=== PATIENT | female | born 2000 | race Caucasian/White ===

== ENCOUNTER 2019-03-08 20:10 | Emergency (ER) | payer OTHER ==
[~2019-03-08] VITALS: Ht 160 cm; Wt 104.3 kg
--- OUTSIDE RECORDS SUMMARY | 2019-03-08 20:14 | XMS REPORT | Continuity of Care Document ---
Author Author [facility] Address Unknown Phone Unavailable Care Team Providers Care Shot Hole Driller Name Role Phone MD Jessica, Dinesh HOUSE Unavailable Insurance Providers Payer name Policy type / Coverage type Policy ID Covered alliance party ID Policy Lester [employer] - OPEN ACCESS PLUS Encounters Encounter Performer Location Date Office Visit Dinesh Lopez MD [facility] May 20, 2014 Problems Problem Effective Dates Problem Status ADHD Jan 23, 2014 Active DEPRESSION Jan 23, 2014 Active CONTRACEPTIVE MANAGEMENT Jan 23, 2014 Active OTALGIA, UNSPECIFIED Apr 22, 2014 Inactive Procedures Date Description Comments Jan 23, 2014 smoking status never smoker Apr 22, 2014 smoking status Never smoker May 20, 2014 smoking status Never smoker Medications Medication Instructions Start Date Status PROZAC 10 MG CAPS 1 p.o. qd Jan 23, 2014 Active TRINESSA (28) TABS 1 p.o. qd Jan 23, 2014 Active DAYTRANA 30 MG/9HR PTCH apply patch once daily Jan 23, 2014 Inactive VYVANSE 40 MG CAPS Take one capsule by mouth daily Apr 22, 2014 Active ZYPREXA 5 MG TABS 1 before bed May 20, 2014 Active Vital Signs Date Description Test Result Jan 23, 2014 height E&M HEIGHT 65 in Jan 23, 2014 weight E&M WEIGHT 181 lb Jan 23, 2014 temperature E&M TEMPERATURE 98.7 deg f Jan 23, 2014 pulse rate E&M PULSE RATE 100 /min Jan 23, 2014 blood pressure, systolic BP SYSTOLIC 118 mm Hg Jan 23, 2014 blood pressure, diastolic BP DIASTOLIC 70 mm Hg Apr 22, 2014 weight E&M WEIGHT 187 lb Apr 22, 2014 temperature E&M TEMPERATURE 98.8 deg f Apr 22, 2014 pulse rate E&M PULSE RATE 80 /min Apr 22, 2014 blood pressure, systolic BP SYSTOLIC 116 mm Hg Apr 22, 2014 blood pressure, diastolic BP DIASTOLIC 66 mm Hg May 20, 2014 height E&M HEIGHT 64.5 in May 20, 2014 weight E&M WEIGHT 186 lb May 20, 2014 temperature E&M TEMPERATURE 98.6 deg f May 20, 2014 respiratory rate E&M RESP RATE 16 /min May 20, 2014 pulse rate E&M PULSE RATE 94 /min May 20, 2014 blood pressure, systolic BP SYSTOLIC 120 mm Hg May 20, 2014 blood pressure, diastolic BP DIASTOLIC 84 mm Hg
--- OUTSIDE RECORDS SUMMARY | 2019-03-08 20:14 | XMS REPORT | Continuity of Care Document ---
Author Author [facility] Interface Address Unknown Phone Unavailable Problems Problem Status Onset Date Classification Date Reported Comments Source R10.2 - PELVIC AND PERINEAL PAIN Active 10/28/2018 [facility] [place] Female pelvic inflammatory disease, unspecified 11/17/2017 02/19/2018 [facility] N73.9 - FEMALE PELVIC INFLAMMATORY DIS Active 11/01/2017 [facility] Atypical chest pain<sup>1</sup> Active 02/03/2015 Problem 09/16/2017 Data migrated from [employer] on 04/21/15. [facility] Discharge Diagnosis: Palpitations 01/29/2015 02/01/2015 [facility] Discharge Diagnosis: Chest pain, atypical 01/29/2015 02/01/2015 [facility] HEART PALPATATIONS Active 01/29/2015 [facility] OTALGIA, UNSPECIFIED Inactive 04/22/2014 Condition 12/31/2014 [facility] ADHD Active 01/23/2014 Condition 12/31/2014 [facility] DEPRESSION Active 01/23/2014 Condition 12/31/2014 [facility] CONTRACEPTIVE MANAGEMENT Active 01/23/2014 Condition 12/31/2014 [facility] Contraception care management<sup>2</sup> Active 01/23/2014 Problem 09/16/2017 Data migrated from [employer] on 03/16/15[facility]<sup[facility]</sup[facility] Active 01/23/2014 Problem 09/16/2017 Data migrated from [employer] on 03/16/15. [facility] Contraception care management<sup>1</sup> Active 01/23/2014 Problem 02/22/2019 Data migrated from [employer] on 03/16/15. [facility] Depressive disorder<sup>2</sup> Active 01/23/2014 Problem 02/22/2019 Data migrated from [employer] on 03/16/15. [facility] ADHD , combined type(<span ID="[id number]">Confirmed</span>) Active Problem 02/22/2019 [facility] Depression Resolved Problem 02/22/2019 [facility] Obesity Active Problem 02/22/2019 [facility] ADHD (<span ID="[id number]">Confirmed</span>) Resolved Problem 02/01/2015 [facility] Major depressive disorder, recurrent episode Active Problem 02/22/2019 [facility] LBP Active [facility] Medications Medication Details Route Status Patient Instructions Ordering Provider Order Date Source Ondansetron 8 MG Oral Tablet [Zofran] 8 mg=1 tab, PO, TID, # 10 tab, 0 Refill(s), Pharmacy: [facility] [id number] Active 07/16/2018 [facility] aripiprazole 5 MG Oral Tablet [Abilify] 5 mg=1 tab, PO, Daily, # 90 tab, 1 Refill(s) Active 07/12/2018 [facility] sertraline 50 mg oral tablet 50 mg=1 tab, PO, Daily, # 30 tab, 1 Refill(s), Pharmacy: [facility] [id number] No Longer Active 06/10/2018 [facility] aripiprazole 5 MG Oral Tablet [Abilify] 5 mg=1 tab, PO, Daily, # 30 tab, 1 Refill(s) No Longer Active 06/10/2018 [facility] albuterol 90 mcg/inh inhalation aerosol 2 puff, INHALATION, Q4H, PRN for wheezing, # 1 ea, 0 Refill(s), Pharmacy: [facility] [id number], *may substitute any generic albuterol inhaler Active 04/23/2018 [facility] {21 (Methylprednisolone 4 MG Oral Tablet [Medrol]) } Pack [Medrol Dosepak] See Instructions, PO, Take by mouth as directed on label., # 1 Pack, 0 Refill(s), Pharmacy: [facility] [id number] Active 04/23/2018 [facility] pantoprazole 40 mg oral enteric coated tablet 40 mg=1 tab, PO, Daily, # 30 tab, 1 Refill(s), Pharmacy: [facility] [id number] Active 04/03/2018 [facility] promethazine 12.5 mg oral tablet 12.5 mg=1 tab, PO, Q8H, PRN Nausea, May cause drowsiness, # 30 tab, 0 Refill(s), Pharmacy: [facility] [id number] No Longer Active 01/17/2018 [facility] Brompheniramine Maleate 0.4 MG/ML / Dextromethorphan Hydrobromide 2 MG/ML / Pseudoephedrine Hydrochloride 6 MG/ML Oral Solution [Bromfed DM] See Instructions, PRN cough, 10 ml PO TID prn cough, may cause drowsiness., # 150 mL, 0 Refill(s), Pharmacy: [facility] [id number] No Longer Active 12/31/2017 [facility] Clarithromycin 500 MG Oral Tablet [Biaxin] 500 mg=1 tab, PO, Q12H, X 10 day, # 20 tab, 0 Refill(s), Pharmacy: [facility] [id number] No Longer Active 12/31/2017 [facility] Promethazine Hydrochloride 25 MG Oral Tablet 25 mg=1 tab, PO, Q6H, PRN Nausea/Vomiting, # 12 tab, 0 Refill(s), Pharmacy: [facility] [id number] No Longer Active 12/21/2017 [facility] Azithromycin 250 MG Oral Tablet [Zithromax] 1,000 mg=4 tab, PO, ONCE, # 4 tab, 0 Refill(s), Pharmacy: [facility]/pharmacy #[id number] Active 10/02/2017 [facility] Azithromycin 500 MG Oral Tablet [Zithromax] 2,000 mg=4 tab, PO, ONCE, # 4 tab, 0 Refill(s), Pharmacy: [facility]/pharmacy #[id number] Active 10/02/2017 [facility] Doxepin Hydrochloride 25 MG Oral Capsule 25 mg=1 cap, PO, Bedtime, # 15 cap, 0 Refill(s), Pharmacy: [facility]/pharmacy #[id number] Active 09/13/2017 [facility] cimetidine 400 mg oral tablet 400 mg=1 tab, PO, BID, X 15 day, # 30 tab, 0 Refill(s), Pharmacy: [facility]/pharmacy #[id number] Active 09/13/2017 [facility] predniSONE 10 mg oral tablet 10 mg=1 tab, PO, Daily, # 7 tab, 0 Refill(s) Inactive 09/13/2017 [facility] Hydroxyzine Hydrochloride 25 MG Oral Tablet 25 mg=1 tab, PO, TID, X 14 day, # 42 tab, 0 Refill(s), [id number] Active 09/11/2017 [facility] Saline Flush 0.9% 10 mL, Route: IVP, Drug Form: INJ, Dosing Weight 86.534, kg, PRN, PRN Line Flush, Start date: 01/29/15 22:21:00, Duration: 30 day, Stop date: 02/28/15 22:20:00Notes: preservative free. No Longer Active 01/30/2015 [facility] INTUNIV 2 MG [id number] one tablet each morning Active 12/31/2014 [facility] ZYPREXA 5 MG TABS 1 before bed No Longer Active 05/20/2014 [facility] VYVANSE 40 MG CAPS Take one capsule by mouth daily Active 04/22/2014 [facility] VYVANSE 60 MG CAPS Take one capsule by mouth in the morning Active 04/22/2014 [facility] DAYTRANA 30 MG/9HR PTCH apply patch once daily No Longer Active 01/23/2014 [facility] PROZAC 10 MG CAPS 1 p.o. qd Active 01/23/2014 [facility] TRINESSA (28) TABS 1 p.o. qd Active 01/23/2014 [facility] TRINESSA (28) TABS 1 p.o. qd Active 01/23/2014 [facility] Allergies, Adverse Reactions, Alerts Substance Category Reaction Severity Reaction type Status Date Reported Comments Source No Known Medication Allergies Assertion Drug allergy [facility] Immunizations Immunization Date Given Site Status Last Updated Comments Source Results Order Name Results Value Reference Range Date Interpretation Comments Source Abdomen complete US Abdomen complete US Patient Name: WOODROW DARLING : 2000; Age: 18 years Female MR: [id number] Study: Abdomen complete US 04/26/2018 8:34 AM CDT CLINICAL INDICATION: - c/o midepigastric pain after eating x almost 3 weeks COMPARISON: None TECHNIQUE: Grayscale and limited color sonographic evaluation of the abdomen was performed using standard technique. FINDINGS: Liver: The liver demonstrates increased echogenicity and is normal in size, measuring 18.9 cm. No focal liver lesion identified. The main portal vein demonstrates normal hepatopedal flow. Gallbladder: Normal appearance of the gallbladder without evidence of stones, wall thickening, or pericholecystic fluid. Biliary: No intra or extrahepatic biliary ductal dilatation. The common bile duct measures 0.32 cm. Pancreas: The visualized portions of the pancreatic body are unremarkable. Spleen: The spleen is normal in echogenicity and in size, measuring 10.9 cm in length. Kidney: The right kidney measures 12.8 cm in length. The left kidney measures 12 cm in length. Normal renal echogenicity and contour without evidence of hydronephrosis. Aorta and IVC: The visualized portions are unremarkable. No evidence of free fluid. IMPRESSION: Hepatic steatosis. SL: [id number] 04/26/2018 - - Read by: Cristhian Levy MD Dictated Date/time: 04/26/18 09:54 Electronically Signed by: Cristhian Levy MD 04/26/18 09:56 FINAL REPORT [facility] Pelvis Transvaginal US Pelvis Transvaginal US TRANSVAGINAL ULTRASOUND PELVIS TECHNIQUE: Grayscale and color transvaginal imaging of the pelvis was performed with standard technique. HISTORY: Pelvic inflammatory disease; pelvic pain COMPARISON: None available. FINDINGS: The uterus measures 7.3 x 3.4 x 4.6 cm in size. The uterine parenchyma appears normal without evidence of fibroids. The endometrial stripe is normal and measures 6 mm in thickness. Both ovaries are normal in size and appearance. The right ovary measures 2.8 x 3.4 x 2.0 cm and the left ovary measures 2.8 x 1.7 x 2.2 cm. Doppler evaluation reveals normal arterial and venous waveforms in both ovaries. There are no adnexal masses. There is no free fluid in the pelvic cul-de-sac. IMPRESSION: Normal study SL: [id number]-PC 11/13/2017 - - Read by: David Olivas MD Dictated Date/time: 11/13/17 18:18 Electronically Signed by: David Olivas MD 11/13/17 18:20 FINAL REPORT [facility] CHEM PANEL eGFR See Comment 01/30/2015 1Result Comment: No height is recorded for this patient; estimated GFR cannot be calculated. [facility] CHEM PANEL Calcium Lvl 9.3 mg/dL 8.5 - 10.5 01/30/2015 [facility] CHEM PANEL Creatinine Lvl 0.6 mg/dL 0.5 - 1.4 01/30/2015 [facility] CHEM PANEL Sodium Lvl 139 meq/L 135 - 145 01/30/2015 [facility] CHEM PANEL Glucose Lvl 90 mg/dL 70 - 99 01/30/2015 2Interpretive Data: Adult reference range values reflect the clinical guidelines of the [place] [employer]. [facility] CHEM PANEL Chloride Lvl 106 meq/L 95 - 109 01/30/2015 [facility] CHEM PANEL Potassium Lvl 3.7 meq/L 3.5 - 5.1 01/30/2015 [facility] CHEM PANEL BUN 10 mg/dL 7 - 22 01/30/2015 [facility] CHEM PANEL CO2 26 meq/L 24 - 32 01/30/2015 [facility] CHEM PANEL AGAP 10.7 meq/L 10.0 - 20.0 01/30/2015 [facility] HEMATOLOGY D-Dimer 0.22 ug/mL FEU 01/30/2015 3Interpretive Data: In DIC, quantitative D-Dimer is generally greater than 0.66 ug/mL FEU. Values of quantitative D-Dimer less than 0.40 ug/mL FEU have been reported to be associated with a low probability of deep vein thrombosis/pulmonary embolism. This test alone should not be used to rule out DVT/PE. [facility] MPV 9.3 fL 7.4 - 10.4 01/30/2015 [facility] Platelet 213 K/CMM 133 - 450 01/30/2015 [facility] RDW 12.4 % 11.5 - 14.5 01/30/2015 [facility] Hct 36.7 % 36.0 - 48.0 01/30/2015 [facility] WBC 8.4 K/CMM 3.7 - 10.4 01/30/2015 [facility] MCH 32.4 pg 27.0 - 31.0 01/30/2015 [facility] MCV 93.8 fL 80.0 - 98.0 01/30/2015 [facility] MCHC 34.5 g/dL 32.0 - 36.0 01/30/2015 [facility] HEMATOLOGY Hgb 12.7 g/dL 12.0 - 16.0 01/30/2015 [facility] HEMATOLOGY RBC 3.91 M/CMM 4.20 - 5.40 01/30/2015 [facility] HEMATOLOGY Eosinophils # 0.1 K/CMM 0.0 - 0.5 01/30/2015 [facility] HEMATOLOGY Monocytes # 0.8 K/CMM 0.0 - 0.8 01/30/2015 [facility] HEMATOLOGY Segs 58.3 % 34.0 - 64.0 01/30/2015 [facility] HEMATOLOGY Lymphocytes 30.5 % 20.0 - 40.0 01/30/2015 [facility] HEMATOLOGY Monocytes 9.5 % 2.0 - 12.0 01/30/2015 [facility] HEMATOLOGY Basophils 0.3 % 0.0 - 1.0 01/30/2015 [facility] HEMATOLOGY Segs-Bands # 4.9 K/CMM 1.5 - 8.1 01/30/2015 [facility] Eosinophils 1.4 % 0.0 - 4.0 01/30/2015 [facility] Lymphocytes # 2.6 K/CMM 1.0 - 5.5 01/30/2015 [facility] Chest 1view DX Chest 1view DX Chest, single view: CLINICAL HISTORY: Chest pain COMPARISON: No prior similar examinations are currently available for comparison. The lungs are clear of consolidation, pleural effusion, and pneumothorax. The heart size is normal. No acute osseous abnormality or suspicious focal osseous lesion. IMPRESSION: Normal single view chest. SL:17 01/29/2015 - - Read by: Baldemar Lobo MD Dictated Date/time: 01/29/15 22:53 Electronically Signed by: Baldemar Lobo MD 01/29/15 22:53 FINAL REPORT [facility] Vital Signs Vital Sign Value Date Comments Source Weight 110.364 02/19/2019 [facility] BMI Calculated 43.1 02/19/2019 [facility] Height 160.02 cm 02/19/2019 [facility] Heart Rate 83 02/19/2019 [facility] Temperature Oral (F) 98.6 F 02/19/2019 [facility] Systolic (mm Hg) 136 02/19/2019 [facility] Diastolic (mm Hg) 81 02/19/2019 [facility] BMI Calculated 44.38 07/16/2018 [facility] Height 160.02 cm 07/16/2018 [facility] Heart Rate 99 07/16/2018 [facility] Temperature Oral (F) 98.4 F 07/16/2018 [facility] Weight 113.636 07/16/2018 [facility] Systolic (mm Hg) 123 07/16/2018 [facility] Diastolic (mm Hg) 83 07/16/2018 [facility] Systolic (mm Hg) 122 07/12/2018 [facility] Diastolic (mm Hg) 80 07/12/2018 [facility] Temperature Oral (F) 98.3 F 07/12/2018 [facility] Height 160.02 cm 07/12/2018 [facility] BMI Calculated 44.59 07/12/2018 [facility] Weight 114.182 07/12/2018 [facility] Heart Rate 84 07/12/2018 [facility] Systolic (mm Hg) 130 06/10/2018 [facility] Diastolic (mm Hg) 84 06/10/2018 [facility] Heart Rate 90 06/10/2018 [facility] Temperature Oral (F) 98.3 F 06/10/2018 [facility] Height 160.02 cm 06/10/2018 [facility] Weight 114.727 06/10/2018 [facility] BMI Calculated 44.8 06/10/2018 [facility] BMI Calculated 45.09 04/23/2018 [facility] Weight 115.455 04/23/2018 [facility] Temperature Oral (F) 98.2 F 04/23/2018 [facility] Heart Rate 99 04/23/2018 [facility] Respitory Rate 16 04/23/2018 [facility] Systolic (mm Hg) 106 04/23/2018 [facility] Diastolic (mm Hg) 73 04/23/2018 [facility] Height 160.02 cm 04/23/2018 [facility] BMI Calculated 44.7 04/03/2018 [facility] Weight 114.455 04/03/2018 [facility] Heart Rate 98 04/03/2018 [facility] Temperature Oral (F) 98.3 F 04/03/2018 [facility] Height 160.02 cm 04/03/2018 [facility] Systolic (mm Hg) 108 04/03/2018 [facility] Diastolic (mm Hg) 74 04/03/2018 [facility] Weight 114 01/17/2018 [facility] Heart Rate 98 01/17/2018 [facility] Temperature Oral (F) 97.8 F 01/17/2018 [facility] Height 160.02 cm 01/17/2018 [facility] BMI Calculated 44.52 01/17/2018 [facility] Systolic (mm Hg) 98 01/17/2018 [facility] Diastolic (mm Hg) 70 01/17/2018 [facility] Heart Rate 116 12/31/2017 [facility] Temperature Oral (F) 98.7 F 12/31/2017 [facility] Weight 114.545 12/31/2017 [facility] Height 160.02 cm 12/31/2017 [facility] BMI Calculated 44.73 12/31/2017 [facility] Systolic (mm Hg) 109 12/31/2017 [facility] Diastolic (mm Hg) 75 12/31/2017 [facility] Height 160.02 cm 12/21/2017 [facility] BMI Calculated 44.95 12/21/2017 [facility] Weight 115.091 12/21/2017 [facility] Temperature Oral (F) 97.6 F 12/21/2017 [facility] Heart Rate 93 12/21/2017 [facility] Systolic (mm Hg) 110 12/21/2017 [facility] Diastolic (mm Hg) 74 12/21/2017 [facility] BMI Calculated 45.27 10/01/2017 [facility] Weight 115.909 10/01/2017 [facility] Height 160.02 cm 10/01/2017 [facility] Systolic (mm Hg) 111 10/01/2017 [facility] Diastolic (mm Hg) 77 10/01/2017 [facility] Temperature Oral (F) 97.9 F 10/01/2017 [facility] Heart Rate 93 10/01/2017 [facility] Respitory Rate 16 10/01/2017 [facility] BMI Calculated 44.73 09/13/2017 [facility] Weight 114.545 09/13/2017 [facility] Height 160.02 cm 09/13/2017 [facility] Heart Rate 108 09/13/2017 [facility] Respitory Rate 16 09/13/2017 [facility] Systolic (mm Hg) 136 09/13/2017 [facility] Diastolic (mm Hg) 86 09/13/2017 [facility] Temperature Oral (F) 98.1 F 09/13/2017 [facility] Heart Rate 106 09/10/2017 [facility] Temperature Oral (F) 97.7 F 09/10/2017 [facility] Weight 114.909 09/10/2017 [facility] BMI Calculated 44.88 09/10/2017 [facility] Systolic (mm Hg) 127 09/10/2017 [facility] Diastolic (mm Hg) 84 09/10/2017 [facility] Height 160.02 cm 09/10/2017 [facility] BMI Calculated 44.91 08/29/2017 [facility] Weight 115 08/29/2017 [facility] Height 160.02 cm 08/29/2017 [facility] Temperature Oral (F) 98.4 F 08/29/2017 [facility] Respitory Rate 16 08/29/2017 [facility] Systolic (mm Hg) 121 08/29/2017 [facility] Diastolic (mm Hg) 81 08/29/2017 [facility] Heart Rate 109 08/29/2017 [facility] Respitory Rate 14 01/30/2015 [facility] Heart Rate 93 01/30/2015 [facility] Systolic (mm Hg) 143 01/30/2015 [facility] Diastolic (mm Hg) 81 01/30/2015 [facility] Temperature Oral (F) 98.1 F 01/30/2015 [facility] Systolic (mm Hg) 129 01/30/2015 [facility] Diastolic (mm Hg) 79 01/30/2015 [facility] Respitory Rate 14 01/30/2015 [facility] Heart Rate 86 01/30/2015 [facility] Temperature Oral (F) 98.2 F 01/30/2015 [facility] Weight 86.534 01/30/2015 [facility] Respitory Rate 20 01/30/2015 [facility] Heart Rate 107 01/30/2015 [facility] Systolic (mm Hg) 147 01/30/2015 [facility] Diastolic (mm Hg) 89 01/30/2015 [facility] Temperature Oral (F) 98.0 F 01/30/2015 [facility] Height 64 12/31/2014 [facility] Weight 187 12/31/2014 [facility] Temperature Oral (F) 98.2 F 12/31/2014 [facility] Respitory Rate 16 12/31/2014 [facility] Heart Rate 80 12/31/2014 [facility] Systolic (mm Hg) 112 12/31/2014 [facility] Diastolic (mm Hg) 82 12/31/2014 [facility] Height 63.5 11/02/2014 [facility] Weight 188 11/02/2014 [facility] Temperature Oral (F) 98.4 F 11/02/2014 [facility] Respitory Rate 16 11/02/2014 [facility] Heart Rate 80 11/02/2014 [facility] Systolic (mm Hg) 122 11/02/2014 [facility] Diastolic (mm Hg) 80 11/02/2014 [facility] Height 64.5 05/20/2014 [facility] Weight 186 05/20/2014 [facility] Temperature Oral (F) 98.6 F 05/20/2014 [facility] Respitory Rate 16 05/20/2014 [facility] Heart Rate 94 05/20/2014 [facility] Systolic (mm Hg) 120 05/20/2014 [facility] Diastolic (mm Hg) 84 05/20/2014 [facility] Weight 187 04/22/2014 [facility] Temperature Oral (F) 98.8 F 04/22/2014 [facility] Heart Rate 80 04/22/2014 [facility] Systolic (mm Hg) 116 04/22/2014 [facility] Diastolic (mm Hg) 66 04/22/2014 [facility] Height 65 01/23/2014 [facility] Weight 181 01/23/2014 [facility] Temperature Oral (F) 98.7 F 01/23/2014 [facility] Heart Rate 100 01/23/2014 [facility] Systolic (mm Hg) 118 01/23/2014 [facility] Diastolic (mm Hg) 70 01/23/2014 [facility] Encounters Location Location Details Encounter Type Encounter Number Reason For Visit Attending Provider ADM Date DC Date Status Source [facility] [place] Office Visit [id number] Dinesh Reno MD 01/23/2014 01/23/2014 [facility] [place] [facility] [place] [id number] Dinesh Reno MD 04/22/2014 04/22/2014 [facility] [place] [facility] Visit [id number] Dinesh Reno MD 05/20/2014 05/20/2014 [facility] [place] [facility] Visit [id number] Dinesh Reno MD 11/02/2014 11/02/2014 [facility] [place] [facility] Visit [id number] Dinesh Reno MD 12/31/2014 12/31/2014 [facility] [id number] Jamison Lorenzana 01/30/2015 01/30/2015 [facility] Outpatient [id number] DINESH RENO 07/26/2015 [facility] [id number] DINESH RENO 10/05/2015 [facility] [id number] DINESH RENO 10/26/2015 [facility] [id number] DINESH RENO 11/05/2015 [facility] [id number] DINESH RENO 02/03/2016 [facility] [id number] DINESH RENO 02/22/2016 Active [facility] [id number] DINESH RENO 03/20/2016 [facility] [id number] DINESH RENO 07/26/2016 [facility] [id number] DINESH RENO 08/01/2016 [facility] [id number] DINESH RENO 09/04/2016 Active [facility] Patients [id number] Dinesh Reno 09/20/2016 10/20/2016 [facility] Outpatient [id number] DINESH RENO 10/25/2016 [facility] [id number] DINESH RENO 11/07/2016 [facility] [id number] DINESH RENO 12/18/2016 [facility] [id number] IGOR NOWAZEK 03/16/2017 Active [facility] [id number] IGOR NOWAZEK 04/18/2017 Active [facility] [id number] DINESH RENO 05/29/2017 Active [facility] [id number] IGOR NOWAZEK 06/25/2017 Active [facility] [id number] NURSE VISIT 06/28/2017 Active [facility] [id number] DINESH RENO 07/20/2017 Active [facility] [id number] DINESH RENO 08/13/2017 [facility] [id number] IGOR NOWAZEK 08/20/2017 [facility] [id number] DINESH RENO 08/29/2017 [facility] [id number] Dinesh Reno 08/29/2017 08/30/2017 [facility] Outpatient [id number] DINESH ASHIVONNE 09/10/2017 Active [facility] Outpatient [id number] Dinesh Ashivonne 09/10/2017 09/11/2017 [facility] Phone Message [id number] 09/11/2017 09/13/2017 [facility] Outpatient [id number] DINESH ASHIVONNE 09/13/2017 Active [facility] [id number] Dinesh Ashivonne 09/13/2017 09/14/2017 [facility] Outpatient [id number] SHAHLA CASTELLANO 10/01/2017 [facility] [id number] Shahla Castellano 10/01/2017 10/02/2017 [facility] Phone Message [id number] 10/04/2017 10/06/2017 [facility] [id number] Mercedes Noyola 11/13/2017 11/14/2017 [facility] [id number] DINESH ROWDY 12/21/2017 Active [facility] [id number] Shahla Castellano 12/21/2017 12/22/2017 [facility] Outpatient [id number] JENIFER POON 12/31/2017 Active [facility]patient [id number] Shahla Castellano 12/31/2017 01/01/2018 [facility] Outpatient [id number] JENIFER POON 01/17/2018 Active [facility] [id number] Shahla Castellano 01/17/2018 01/18/2018 [facility] Outpatient [id number] JENIFER POON 02/04/2018 Active [facility] Pre-Reg [id number] Jenifer Poon 02/04/2018 02/04/2018 [facility] Outpatient [id number] DINESH ROWDY 04/03/2018 Active [facility] Outpatient [id number] Dinesh Rowdy 04/03/2018 04/04/2018 [facility] Outpatient [id number] SHAHLA CASTELLANO 04/23/2018 Active [facility] Outpatient [id number] Shahla Castellano 04/23/2018 04/24/2018 [facility] Out[facility] [id number] Shahla Castellano 04/26/2018 04/27/2018 [facility] [id number] DINESH RENO 06/10/2018 Active [facility] [id number] Dinesh Reno 06/10/2018 06/11/2018 [facility] Outpatient [id number] DINESH RENO 07/12/2018 Active [facility] Outpatient [id number] Dinesh Reno 07/12/2018 07/13/2018 [facility]patient [id number] DINESH RENO 07/16/2018 Active [facility] Outpatient [id number] Shahla Castellano 07/16/2018 07/17/2018 [facility] Outpatient [id number] DINESH RENO 10/09/2018 Active [facility] Outpatient [id number] Dinesh Reno 02/19/2019 Active [facility] Outpatient [id number] Dinesh Reno 02/19/2019 02/20/2019 [facility] Procedures Procedure Code Date Perfomer Comments Source
--- OUTSIDE RECORDS SUMMARY | 2019-03-08 20:14 | XMS REPORT | Summary of Care ---
Author Author [facility] Organization [facility] Address Unknown Phone Unavailable Encounter [place]UN [place]EN [place]INT) [id number] Date(s): 09/13/17 - 09/13/17 [facility] Sat[facility] [address] [address] [phone] Discharge Disposition: Home or Self Care Attending Physician: Dinesh Lopez MD Vital Signs Most recent to 1 oldest [Reference Range]: Height 160.02 cm (09/13/17 2:11 PM) Temperature Oral 98.1 DegF [96.4-99.1 DegF] (09/13/17 2:11 PM) Blood Pressure 136/86 mmHg [90-140/60-90 mmHg] (09/13/17 2:11 PM) Respiratory Rate 16 BRMIN [14-20 BRMIN] (09/13/17 2:11 PM) Peripheral Pulse 108 bpm Rate [60-100 bpm] *HI* (09/13/17 2:11 PM) Weight 114.545 kg (09/13/17 2:11 PM) Body Mass Index 44.73 m2 (09/13/17 2:11 PM) Problem List Condition Effective Dates Status Health Status Informant ADHD (attention Active deficit hyperactivity disorder), combined type(Confirmed) Atypical chest pain1 02/03/15 Active Contraception care 01/23/14 Active management2 Depression(Confirmed Resolved ) Depressive disorder3 01/23/14 Active Obesity(Confirmed) Active 1Data migrated from [employer] on 04/21/15. 2Data migrated from [employer] on 03/16/15. 3Data migrated from [employer] on 03/16/15. Allergies, Adverse Reactions, Alerts Substance Reaction Severity Status NKDA Active Medications cimetidine 400 mg oral tablet 400 mg=1 tab, PO, BID, X 15 day, # 30 tab, 0 Refill(s), Pharmacy: [facility]/pharmacy # [id number] Start Date: 09/13/17 Stop Date: 09/28/17 Status: Ordered doxepin 25 mg oral capsule 25 mg=1 cap, PO, Bedtime, # 15 cap, 0 Refill(s), Pharmacy: [facility]/pharmacy #[id number] Start Date: 09/13/17 Status: Ordered predniSONE 10 mg oral tablet 10 mg=1 tab, PO, Daily, # 7 tab, 0 Refill(s) Start Date: 09/13/17 Stop Date: 09/13/17 Status: Discontinued Results No data available for this section Immunizations No data available for this section Procedures Procedure Date Related Diagnosis Body Site None Social History Social History Type Response Substance Abuse Use: None. Employment/School Status: Student. Work/School description: 11th grade. Alcohol Never Smoking Status Never smoker; Concerns about tobacco use in household: No; Lives with someone who smokes; Cigarette Smoking Last 365 Days No; Reg Smoking Cessation Counseling No1 1parents smoke Assessment and Plan No data available for this section
--- OUTSIDE RECORDS SUMMARY | 2019-03-08 20:14 | XMS REPORT | Summary of Care ---
Author Author [facility] Organization [facility] Address Unknown Phone Unavailable Encounter HQ Vivian(FIN) [id number] Date(s): 08/29/17 - 08/29/17 [facility] Satish [address] [place] [address] [phone] Discharge Disposition: Home or Self Care Attending Physician: Dinesh Lopez MD Vital Signs Most recent to 1 oldest [Reference Range]: Height 160.02 cm (08/29/17 1:55 PM) Temperature Oral 98.4 DegF [96.4-99.1 DegF] (08/29/17 1:55 PM) Blood Pressure 121/81 mmHg [90-140/60-90 mmHg] (08/29/17 1:55 PM) Respiratory Rate 16 BRMIN [14-20 BRMIN] (08/29/17 1:55 PM) Peripheral Pulse 109 bpm Rate [60-100 bpm] *HI* (08/29/17 1:55 PM) Weight 115 kg (08/29/17 1:55 PM) Body Mass Index 44.91 m2 (08/29/17 1:55 PM) Problem List Condition Effective Dates Status [...] Substance Reaction Severity Status NKDA Active Medications No Known Medications Results No data available for this section [...]
--- OUTSIDE RECORDS SUMMARY | 2019-03-08 20:14 | XMS REPORT | Continuity of Care Document ---
Author Author [facility] Organization [facility] Address Unknown Phone Unavailable Care Team Providers Care Stone Banker Name Role Phone MD Jessica, Dinesh HOUSE Unavailable Insurance Providers Payer name Policy type / Coverage type Policy ID Covered constitution party ID Policy Lester [employer] - OPEN ACCESS PLUS Encounters Encounter Performer Location Date Office Visit Dinesh Lopez MD [facility] Apr 22, 2014 Problems Problem Effective Dates Problem Status ADHD Jan 23, 2014 Active DEPRESSION Jan 23, 2014 Active CONTRACEPTIVE MANAGEMENT Jan 23, 2014 Active OTALGIA, UNSPECIFIED Apr 22, 2014 Active Procedures Date Description Comments Jan 23, 2014 smoking status never smoker Apr 22, 2014 smoking status Never smoker Medications Medication Instructions Start Date Status PROZAC 10 MG CAPS 1 p.o. qd Jan 23, 2014 Active TRINESSA (28) TABS 1 p.o. qd Jan 23, 2014 Active DAYTRANA 30 MG/9HR PTCH apply patch once daily Jan 23, 2014 Inactive VYVANSE 40 MG CAPS Take one capsule by mouth daily Apr 22, 2014 Active Vital Signs Date Description Test [...]
--- OUTSIDE RECORDS SUMMARY | 2019-03-08 20:14 | XMS REPORT | Continuity of Care Document ---
Author Author [facility] Organization [facility] Address Unknown Phone Unavailable Care Team Providers Care Intensive Care Unit Registered Nurse Name Role Phone MD Jessica, Dinesh HOUSE Unavailable Insurance Providers Payer name Policy type / Coverage type Policy ID Covered alliance party ID Policy Lester [employer] - OPEN ACCESS PLUS Encounters Encounter Performer Location Date Office Visit Dinesh Lopez MD [facility] Jan 23, 2014 Problems Problem Effective Dates Problem Status ADHD Jan 23, 2014 Active DEPRESSION Jan 23, 2014 Active CONTRACEPTIVE MANAGEMENT Jan 23, 2014 Active Procedures Date Description Comments Jan 23, 2014 smoking status never smoker Medications Medication Instructions Start Date Status DAYTRANA 30 MG/9HR PTCH apply patch once daily Jan 23, 2014 Active PROZAC 10 MG CAPS 1 p.o. qd Jan 23, 2014 Active TRINESSA (28) TABS 1 p.o. qd Jan 23, 2014 Active Vital Signs Date Description Test Result Jan 23, 2014 height E&M - 8302-2 HEIGHT 65 in Jan 23, 2014 weight E&M - 3141-9 WEIGHT 181 lb Jan 23, 2014 temperature E&M TEMPERATURE 98.7 deg f Jan 23, 2014 pulse rate E&M - 8867-4 PULSE RATE 100 /min Jan 23, 2014 blood pressure, systolic - 8480-6 BP SYSTOLIC 118 mm Hg Jan 23, 2014 blood pressure, diastolic - 8462-4 BP DIASTOLIC 70 mm Hg
--- OUTSIDE RECORDS SUMMARY | 2019-03-08 20:14 | XMS REPORT | Continuity of Care Document ---
Author Author [facility] Address Unknown Phone Unavailable Care Team Providers Care Director Software Development Name Role Phone MD Jessica, Dinesh HOUSE Unavailable Insurance Providers Payer name Policy type / Coverage type Policy ID Covered alliance party ID Policy Lester [employer] - OPEN ACCESS PLUS Encounters Encounter Performer Location Date Office Visit Dinesh Lopez MD [facility] Dec 31, 2014 Problems Problem Effective Dates Problem Status ADHD Jan 23, 2014 Active DEPRESSION Jan 23, 2014 Active CONTRACEPTIVE MANAGEMENT Jan 23, 2014 Active OTALGIA, UNSPECIFIED Apr 22, 2014 Inactive Procedures Date Description Comments Jan 23, 2014 smoking status never smoker Apr 22, 2014 smoking status Never smoker May 20, 2014 smoking status Never smoker Nov 02, 2014 smoking status Never smoker Dec 31, 2014 smoking status Never smoker Medications Medication Instructions Start Date Status PROZAC 10 MG CAPS 1 p.o. qd Jan 23, 2014 Active TRINESSA (28) TABS 1 p.o. qd Jan 23, 2014 Active DAYTRANA 30 MG/9HR PTCH apply patch once daily Jan 23, 2014 Inactive ZYPREXA 5 MG TABS 1 before bed May 20, 2014 Inactive VYVANSE 60 MG CAPS Take one capsule by mouth in the morning Apr 22, 2014 Active INTUNIV 2 MG [id number] one tablet each morning Dec 31, 2014 Active Vital Signs Date Description Test [...] - 8462-4 BP DIASTOLIC 70 mm Hg Apr 22, 2014 weight E&M - 3141-9 WEIGHT 187 lb Apr 22, 2014 temperature E&M TEMPERATURE 98.8 deg f Apr 22, 2014 pulse rate E&M - 8867-4 PULSE RATE 80 /min Apr 22, 2014 blood pressure, systolic - 8480-6 BP SYSTOLIC 116 mm Hg Apr 22, 2014 blood pressure, diastolic - 8462-4 BP DIASTOLIC 66 mm Hg May 20, 2014 height E&M - 8302-2 HEIGHT 64.5 in May 20, 2014 weight E&M - 3141-9 WEIGHT 186 lb May 20, 2014 temperature E&M TEMPERATURE 98.6 deg f May 20, 2014 respiratory rate E&M - 9279-1 RESP RATE 16 /min May 20, 2014 pulse rate E&M - 8867-4 PULSE RATE 94 /min May 20, 2014 blood pressure, systolic - 8480-6 BP SYSTOLIC 120 mm Hg May 20, 2014 blood pressure, diastolic - 8462-4 BP DIASTOLIC 84 mm Hg Nov 02, 2014 height E&M - 8302-2 HEIGHT 63.5 in Nov 02, 2014 weight E&M - 3141-9 WEIGHT 188 lb Nov 02, 2014 temperature E&M TEMPERATURE 98.4 deg f Nov 02, 2014 respiratory rate E&M - 9279-1 RESP RATE 16 /min Nov 02, 2014 pulse rate E&M - 8867-4 PULSE RATE 80 /min Nov 02, 2014 blood pressure, systolic - 8480-6 BP SYSTOLIC 122 mm Hg Nov 02, 2014 blood pressure, diastolic - 8462-4 BP DIASTOLIC 80 mm Hg Dec 31, 2014 height E&M - 8302-2 HEIGHT 64 in Dec 31, 2014 weight E&M - 3141-9 WEIGHT 187 lb Dec 31, 2014 temperature E&M TEMPERATURE 98.2 deg f Dec 31, 2014 respiratory rate E&M - 9279-1 RESP RATE 16 /min Dec 31, 2014 pulse rate E&M - 8867-4 PULSE RATE 80 /min Dec 31, 2014 blood pressure, systolic - 8480-6 BP SYSTOLIC 112 mm Hg Dec 31, 2014 blood pressure, diastolic - 8462-4 BP DIASTOLIC 82 mm Hg
--- OUTSIDE RECORDS SUMMARY | 2019-03-08 20:14 | XMS REPORT | Summary of Care ---
Author Author [facility] Organization [facility] Primary [facility] Address Unknown Phone Unavailable Encounter HQ Vivian(FIN) [id number] Date(s): 09/10/17 - [facility] [address] [place] [phone] Discharge Disposition: Home or Self Care Attending Physician: Dinesh Lopez MD Vital Signs Most recent to 1 oldest [Reference Range]: Height 160.02 cm (09/10/17 1:10 PM) Temperature Oral 97.7 DegF [96.4-99.1 DegF] (09/10/17 1:10 PM) Blood Pressure 127/84 mmHg [90-140/60-90 mmHg] (09/10/17 1:10 PM) Peripheral Pulse 106 bpm Rate [60-100 bpm] *HI* (09/10/17 1:10 PM) Weight 114.909 kg (09/10/17 1:10 PM) Body Mass Index 44.88 m2 (09/10/17 1:10 PM) Problem List Condition Effective Dates Status [...]
--- OUTSIDE RECORDS SUMMARY | 2019-03-08 20:14 | XMS REPORT | Continuity of Care Document ---
Author Author [facility] Organization [facility] Address Unknown Phone Unavailable Care Team Providers Care Sales Strategy Manager Name Role Phone MD Jessica, Dinesh HOUSE Unavailable Insurance Providers Payer name Policy type / Coverage type Policy ID Covered alliance party ID Policy Lester [employer] - OPEN ACCESS PLUS Encounters Encounter Performer Location Date Office Visit Dinesh Lopez MD [facility] Nov 02, 2014 Problems Problem Effective Dates Problem Status ADHD Jan 23, 2014 Active DEPRESSION Jan 23, 2014 Active CONTRACEPTIVE MANAGEMENT Jan 23, 2014 Active OTALGIA, UNSPECIFIED Apr 22, 2014 Inactive Procedures Date Description Comments Jan 23, 2014 smoking status never smoker Apr 22, 2014 smoking status Never smoker May 20, 2014 smoking status Never smoker Nov 02, 2014 smoking status Never smoker Medications Medication [...] in the morning Apr 22, 2014 Active Vital Signs Date [...]
--- OUTSIDE RECORDS SUMMARY | 2019-03-08 20:15 | XMS REPORT | Summary of Care ---
Author Author [facility] Outpatient [facility] [place] Address Unknown Phone Unavailable Encounter HQ John_teri(FIN) [id number] Date(s): 04/26/18 - 04/26/18 [facility] [place] [id number] [place] [address], [address] [facility] [place], [place] [address]- [phone] Discharge Disposition: Home or Self Care Attending Physician: Shahla Castellano NP Referring Physician: Shahla Castellano NP Vital Signs No data available for this section Problem List Condition Effective Dates Status Health Status Informant ADHD (attention Active deficit hyperactivity disorder), combined type(Confirmed) Contraception care 01/23/14 Active management1 Depression(Confirmed Resolved ) Depressive disorder2 01/23/14 Active Obesity(Confirmed) Active 1Data migrated from [employer] on 03/16/15. 2Data migrated from [employer] on 03/16/15. Allergies, Adverse Reactions, Alerts Substance Reaction Severity Status NKDA Active Medications No data available for this section Results No data available for this section Immunizations No data available for this section Procedures Procedure Date Related Diagnosis Body Site Status None Completed Social History Social History Type Response Substance Abuse Use: None. Employment/School Status: Student. Work/School description: 11th grade. Alcohol Never Smoking Status Current every day smoker; Type: Cigarettes; Concerns about tobacco use in household: No; Exposure to Tobacco Smoke Smokes 5 a day; Cigarette Smoking Last 365 Days No; Reg Smoking Cessation Counseling Yes1 entered on: 04/23/18 1parents smoke Assessment and Plan No data available for this section
--- OUTSIDE RECORDS SUMMARY | 2019-03-08 20:15 | XMS REPORT | Summary of Care ---
Author Author [facility] Organization [facility] Address Unknown Phone Unavailable Encounter HQ Vivian(FIN) [id number] Date(s): 01/17/18 - 01/17/18 [facility] Satish [address] [place] [address] [phone] Discharge Disposition: Home or Self Care Attending Physician: Shahla Castellano PST SUPERVISOR Vital Signs Most recent to 1 oldest [Reference Range]: Height 160.02 cm (01/17/18 1:40 PM) Temperature Oral 97.8 DegF [96.4-99.1 DegF] (01/17/18 1:40 PM) Blood Pressure 98/70 mmHg [90-140/60-90 mmHg] (01/17/18 1:40 PM) Peripheral Pulse 98 bpm Rate [60-100 bpm] (01/17/18 1:40 PM) Weight 114 kg (01/17/18 1:40 PM) Body Mass Index 44.52 m2 (01/17/18 1:40 PM) Problem List Condition Effective Dates Status Health Status Informant ADHD (attention Active deficit hyperactivity disorder), combined type(Confirmed) Contraception care 01/23/14 Active management1 Depression(Confirmed Resolved ) Depressive disorder2 01/23/14 Active Obesity(Confirmed) Active 1Data migrated from [employer] on 03/16/15. 2Data migrated from [employer] on 03/16/15. Allergies, Adverse Reactions, Alerts Substance Reaction Severity Status NKDA Active Medications promethazine 12.5 mg oral tablet 12.5 mg=1 tab, PO, Q8H, PRN Nausea, May cause drowsiness, # 30 tab, 0 Refill(s), Pharmacy: [facility] [id number] Start Date: 01/17/18 Stop Date: 04/03/18 Status: Discontinued Results No data available for [...]
--- OUTSIDE RECORDS SUMMARY | 2019-03-08 20:15 | XMS REPORT | Summary of Care ---
Author Author [facility] Primary [facility] Organization [facility] Address Unknown Phone Unavailable Encounter HQ Vivian(FIN) [id number] Date(s): 06/10/18 - 06/10/18 [facility] Satish [address] [place] [address] [phone] Discharge Disposition: Home or Self Care Attending Physician: Dinesh Lopez MD Vital Signs Most recent to 1 oldest [Reference Range]: Height 160.02 cm (06/10/18 9:05 AM) Temperature Oral 98.3 DegF [96.4-99.1 DegF] (06/10/18 9:05 AM) Blood Pressure 130/84 mmHg [90-140/60-90 mmHg] (06/10/18 9:05 AM) Peripheral Pulse 90 bpm Rate [60-100 bpm] (06/10/18 9:05 AM) Weight 114.727 kg (06/10/18 9:05 AM) Body Mass Index 44.8 m2 (06/10/18 9:05 AM) Problem List Condition Effective Dates Status Health Status Informant ADHD (attention Active deficit hyperactivity disorder), combined type(Confirmed) Contraception care 01/23/14 Active management1 Depression(Confirmed Resolved ) Depressive disorder2 01/23/14 Active Major depressive Active disorder, recurrent episode(Confirmed) Obesity(Confirmed) Active 1Data migrated from [employer] on 03/16/15. 2Data migrated from [employer] on 03/16/15. Allergies, Adverse Reactions, Alerts Substance Reaction Severity Status NKDA Active Medications Abilify 5 mg oral tablet 5 mg=1 tab, PO, Daily, # 30 tab, 1 Refill(s) Start Date: 06/10/18 Stop Date: 07/12/18 Status: Discontinued sertraline 50 mg oral tablet 50 mg=1 tab, PO, Daily, # 30 tab, 1 Refill(s), Pharmacy: [id number] Start Date: 06/10/18 Stop Date: 07/12/18 Status: Discontinued Results No data available for [...] Reg Smoking Cessation Counseling Yes1 entered on: 10/09/18 1parents smoke Assessment and Plan No data available for this section
--- OUTSIDE RECORDS SUMMARY | 2019-03-08 20:15 | XMS REPORT | Summary of Care ---
Author Author [facility] Primary Care [facility] Organization [facility] Primary [facility] Satish Address Unknown Phone Unavailable Encounter SHAUN Park(HEAVEN) [id number] Date(s): 02/19/19 - 02/19/19 [facility] Satish [address] [place] [address] [place] [address]- Discharge Disposition: Home or Self Care Attending Physician: Dinesh Lopez MD Vital Signs Most recent to 1 oldest [Reference Range]: Height 160.02 cm (02/19/19 1:00 PM) Temperature Oral 98.6 DegF [96.4-99.1 DegF] (02/19/19 1:00 PM) Blood Pressure 136/81 mmHg [90-140/60-90 mmHg] (02/19/19 1:00 PM) Peripheral Pulse 83 bpm Rate [60-100 bpm] (02/19/19 1:00 PM) Weight 110.364 kg (02/19/19 1:00 PM) Body Mass Index 43.1 m2 (02/19/19 1:00 PM) Problem List Condition Effective Dates Status Health Status Informant ADHD (attention Active deficit hyperactivity disorder), combined type(Confirmed) Contraception care 01/23/14 Active management1 Depression(Confirmed Resolved ) Depressive disorder2 01/23/14 Active Major depressive Active disorder, recurrent episode(Confirmed) Obesity(Confirmed) Active 1Data migrated from Richard Pauer - 3P on 03/16/15. 2Data migrated from Richard Pauer - 3P on 03/16/15. Allergies, Adverse Reactions, Alerts No Known Medication Allergies Medications No Known Medications Results No data [...] Reg Smoking Cessation Counseling Yes1 entered on: 02/19/19 1parents smoke Assessment and Plan No data available for this section
--- OUTSIDE RECORDS SUMMARY | 2019-03-08 20:15 | XMS REPORT | Summary of Care ---
Author Author [facility] Primary Care [facility] Organization [facility] Address Unknown Phone Unavailable Encounter HQ Vivian(FIN) [id number] Date(s): 04/03/18 - 04/03/18 [facility] Primary [facility] [address] [place], [place] [address] [phone] Discharge Disposition: Home or Self Care Attending Physician: Dinesh Lopez MD Vital Signs Most recent to 1 oldest [Reference Range]: Height 160.02 cm (04/03/18 2:51 PM) Temperature Oral 98.3 DegF [96.4-99.1 DegF] (04/03/18 2:51 PM) Blood Pressure 108/74 mmHg [90-140/60-90 mmHg] (04/03/18 2:51 PM) Peripheral Pulse 98 bpm Rate [60-100 bpm] (04/03/18 2:51 PM) Weight 114.455 kg (04/03/18 2:51 PM) Body Mass Index 44.7 m2 (04/03/18 2:51 PM) Problem List Condition Effective Dates Status Health Status Informant ADHD (attention Active deficit hyperactivity disorder), combined type(Confirmed) Contraception care 01/23/14 Active management1 Depression(Confirmed Resolved ) Depressive disorder2 01/23/14 Active Obesity(Confirmed) Active 1Data migrated from [employer] on 03/16/15. 2Data migrated from [employer] on 03/16/15. Allergies, Adverse Reactions, Alerts Substance Reaction Severity Status NKDA Active Medications pantoprazole 40 mg oral enteric coated tablet 40 mg=1 tab, PO, Daily, # 30 tab, 1 Refill(s), Pharmacy: [email or web address] 06 [id number] Start Date: 04/03/18 Status: Ordered Results No data available for this section [...] Reg Smoking Cessation Counseling Yes1 entered on: 04/03/18 1parents smoke Assessment and Plan No data available for this section
--- OUTSIDE RECORDS SUMMARY | 2019-03-08 20:15 | XMS REPORT | Summary of Care ---
Author Author [facility] Primary Care [facility] Organization [facility] Address Unknown Phone Unavailable Encounter HQ Vivian(FIN) [id number] Date(s): 12/21/17 - 12/21/17 [facility] [address] [place] [address] [phone] Discharge Disposition: Home or Self Care Attending Physician: Shahla Castellano COMPRESSOR ASSEMBLER Vital Signs Most recent to 1 oldest [Reference Range]: Height 160.02 cm (12/21/17 7:55 AM) Temperature Oral 97.6 DegF [96.4-99.1 DegF] (12/21/17 7:55 AM) Blood Pressure 110/74 mmHg [90-140/60-90 mmHg] (12/21/17 7:55 AM) Peripheral Pulse 93 bpm Rate [60-100 bpm] (12/21/17 7:55 AM) Weight 115.091 kg (12/21/17 7:55 AM) Body Mass Index 44.95 m2 (12/21/17 7:55 AM) Problem List Condition Effective Dates Status Health Status Informant ADHD (attention Active deficit hyperactivity disorder), combined type(Confirmed) Contraception care 01/23/14 Active management1 Depression(Confirmed Resolved ) Depressive disorder2 01/23/14 Active Major depressive Active disorder, recurrent episode(Confirmed) Obesity(Confirmed) Active 1Data migrated from [employer] on 03/16/15. 2Data migrated from [employer] on 03/16/15. Allergies, Adverse Reactions, Alerts Substance Reaction Severity Status NKDA Active Medications promethazine 25 mg oral tablet 25 mg=1 tab, PO, Q6H, PRN Nausea/Vomiting, # 12 tab, 0 Refill(s), [id number] Start Date: 12/21/17 Stop Date: 3/19/18 Status: Discontinued Results No data available for [...]
--- OUTSIDE RECORDS SUMMARY | 2019-03-08 20:15 | XMS REPORT | Summary of Care ---
Author Author [facility] Primary Care [facility] Organization [facility] Address Unknown Phone Unavailable Encounter HQ Vivian(FIN) [id number] Date(s): 07/12/18 - 07/12/18 [facility] [address] [place] [address] Discharge Disposition: Home or Self Care Attending Physician: Dinesh Lopez MD Vital Signs Most recent to 1 oldest [Reference Range]: Height 160.02 cm (07/12/18 8:02 AM) Temperature Oral 98.3 DegF [96.4-99.1 DegF] (07/12/18 8:02 AM) Blood Pressure 122/80 mmHg [90-140/60-90 mmHg] (07/12/18 8:02 AM) Peripheral Pulse 84 bpm Rate [60-100 bpm] (07/12/18 8:02 AM) Weight 114.182 kg (07/12/18 8:02 AM) Body Mass Index 44.59 m2 (07/12/18 8:02 AM) Problem List Condition Effective Dates Status Health Status Informant ADHD (attention Active deficit hyperactivity disorder), combined type(Confirmed) Contraception care 01/23/14 Active management1 Depression(Confirmed Resolved ) Depressive disorder2 01/23/14 Active Major depressive Active disorder, recurrent episode(Confirmed) Obesity(Confirmed) Active 1Data migrated from [employer] on 03/16/15. 2Data migrated from [employer] on 03/16/15. Allergies, Adverse Reactions, Alerts Substance Reaction Severity Status NKDA Active Medications Abilify 5 mg oral tablet 5 mg=1 tab, PO, Daily, # 90 tab, 1 Refill(s) Start Date: 07/12/18 Status: Ordered Results No data available for [...]
--- OUTSIDE RECORDS SUMMARY | 2019-03-08 20:15 | XMS REPORT | Summary of Care ---
Author Author [facility] Organization [facility] Address Unknown Phone Unavailable Encounter HQ Vivian(FIN) [id number] Date(s): 04/23/18 - 04/23/18 Formerly [facility] [address] [place] [address] [phone] Discharge Disposition: Home or Self Care Attending Physician: Shahla Castellano CURRICULUM DEVELOPER Vital Signs Most recent to 1 oldest [Reference Range]: Height 160.02 cm (04/23/18 4:14 PM) Temperature Oral 98.2 DegF [96.4-99.1 DegF] (04/23/18 4:14 PM) Blood Pressure 106/73 mmHg [90-140/60-90 mmHg] (04/23/18 4:14 PM) Respiratory Rate 16 BRMIN [14-20 BRMIN] (04/23/18 4:14 PM) Peripheral Pulse 99 bpm Rate [60-100 bpm] (04/23/18 4:14 PM) Weight 115.455 kg (04/23/18 4:14 PM) Body Mass Index 45.09 m2 (04/23/18 4:14 PM) Problem List Condition Effective Dates Status Health Status Informant ADHD (attention Active deficit hyperactivity disorder), combined type(Confirmed) Contraception care 01/23/14 Active management1 Depression(Confirmed Resolved ) Depressive disorder2 01/23/14 Active Obesity(Confirmed) Active 1Data migrated from [employer] on 03/16/15. 2Data migrated from [employer] on 03/16/15. Allergies, Adverse Reactions, Alerts Substance Reaction Severity Status NKDA Active Medications albuterol 90 mcg/inh inhalation aerosol 2 puff, INHALATION, Q4H, PRN for wheezing, # 1 ea, 0 Refill(s), Pharmacy: [id number], *may substitute any generic albuterol inhaler Start Date: 04/23/18 Status: Ordered Medrol Dosepak 4 mg oral tablet See Instructions, PO, Take by mouth as directed on label., # 1 Pack, 0 Refill(s) , Pharmacy: [id number] Start Date: 04/23/18 Stop Date: 04/29/18 Status: Ordered Results No data available for [...]
--- OUTSIDE RECORDS SUMMARY | 2019-03-08 20:15 | XMS REPORT | Summary of Care ---
Author Author [facility] Primary [facility] Organization [facility] Address Unknown Phone Unavailable Encounter HQ Encntr_alileyda(FIN) [id number] Date(s): 10/04/17 - 10/05/17 [facility] [address] [place] [address] [phone] Vital Signs No data available for this section Problem List Condition Effective Dates Status Health Status Informant ADHD (attention Active deficit hyperactivity disorder), combined type(Confirmed) Contraception care 01/23/14 Active management1 Depression(Confirmed Resolved ) Depressive disorder2 01/23/14 Active Obesity(Confirmed) Active 1Data migrated from [employer] on 03/16/15. 2Data migrated from [employer] on 03/16/15. Allergies, Adverse Reactions, Alerts Substance [...]
--- OUTSIDE RECORDS SUMMARY | 2019-03-08 20:15 | XMS REPORT | Summary of Care ---
Author Author [facility] Primary [facility] Organization [facility] Address Unknown Phone Unavailable Encounter HQ Vivian(FIN) [id number] Date(s): 12/31/17 - 12/31/17 [facility] Primary [facility] [address] [place], [place] [address] [phone] Discharge Disposition: Home or Self Care Attending Physician: Shahla Castellano GUSSET RIPPER Vital Signs Most recent to 1 oldest [Reference Range]: Height 160.02 cm (12/31/17 3:05 PM) Temperature Oral 98.7 DegF [96.4-99.1 DegF] (12/31/17 3:05 PM) Blood Pressure 109/75 mmHg [90-140/60-90 mmHg] (12/31/17 3:05 PM) Peripheral Pulse 116 bpm Rate [60-100 bpm] *HI* (12/31/17 3:05 PM) Weight 114.545 kg (12/31/17 3:05 PM) Body Mass Index 44.73 m2 (12/31/17 3:05 PM) Problem List Condition Effective Dates Status Health Status Informant ADHD (attention Active deficit hyperactivity disorder), combined type(Confirmed) Contraception care 01/23/14 Active management1 Depression(Confirmed Resolved ) Depressive disorder2 01/23/14 Active Obesity(Confirmed) Active 1Data migrated from [employer] on 03/16/15. 2Data migrated from [employer] on 03/16/15. Allergies, Adverse Reactions, Alerts Substance Reaction Severity Status NKDA Active Medications Biaxin 500 mg oral tablet 500 mg=1 tab, PO, Q12H, X 10 day, # 20 tab, 0 Refill(s), Pharmacy: [facility] [id number] Start Date: 12/31/17 Stop Date: 01/10/18 Status: Completed Bromfed DM oral syrup See Instructions, PRN cough, 10 ml PO TID prn cough, may cause drowsiness., # 15 0 mL, 0 Refill(s), Pharmacy: [id number] Start Date: 12/31/17 Stop Date: 04/03/18 Status: Discontinued Results No [...]
--- OUTSIDE RECORDS SUMMARY | 2019-03-08 20:15 | XMS REPORT | Summary of Care ---
Author Author [facility] Outpatient Imaging [facility] [place] Address Unknown Phone Unavailable Encounter HQ Encntr_alileyda(FIN) [id number] Date(s): 11/13/17 - 11/13/17 [facility] Out[facility] [place] [id number] [place] [address], [address] [place] [phone]- [phone] Encounter Diagnosis Female pelvic inflammatory disease, unspecified (Final) - 11/16/17 Discharge Disposition: Home or Self Care Attending Physician: Mercedes Noyola MD Vital Signs No data available for this section Problem List Condition Effective Dates Status Health Status Informant ADHD (attention Active deficit hyperactivity disorder), combined type(Confirmed) Contraception care 01/23/14 Active management1 Depression(Confirmed Resolved ) Depressive disorder2 01/23/14 Active Obesity(Confirmed) Active 1Data migrated from [employer] on 03/16/15. 2Data migrated from [employer] on 03/16/15. Allergies, Adverse Reactions, Alerts Substance [...] Days No; Reg Smoking Cessation Counseling No1 entered on: 01/17/18 1parents smoke Assessment and Plan No data available for this section
--- OUTSIDE RECORDS SUMMARY | 2019-03-08 20:15 | XMS REPORT | Summary of Care ---
Author Author [facility] Primary [facility] Organization [facility] Address Unknown Phone Unavailable Encounter HQ Encntr_alias(FIN) [id number] Date(s): 02/04/18 - 02/04/18 [facility] Primary Care [place] [address] [place], [place] [address] [phone] Attending Physician: Ventura Partida MD Vital Signs No data available for this section Problem List Condition Effective Dates Status Health Status Informant ADHD (attention Active deficit hyperactivity disorder), combined type(Confirmed) Contraception care 01/23/14 Active management1 Depression(Confirmed Resolved ) Depressive disorder2 01/23/14 Active Obesity(Confirmed) Active 1Data migrated from [employer] on 03/16/15. 2Data migrated from [employer] on 03/16/15. Allergies, Adverse Reactions, Alerts Substance [...]
--- OUTSIDE RECORDS SUMMARY | 2019-03-08 20:15 | XMS REPORT | Summary of Care ---
Author Author [facility] Primary [facility] Organization [facility] Primary [facility] Address Unknown Phone Unavailable Encounter HQ Mimintr_teri(FIN) [id number] Date(s): 09/11/17 - 09/12/17 [facility] [address] [place] [address] [phone] Vital Signs No data available for this section Problem List Condition Effective Dates Status Health Status Informant ADHD (attention Active deficit hyperactivity disorder), combined type(Confirmed) Atypical chest pain1 02/03/15 Active Contraception care 01/23/14 Active management2 Depression(Confirmed Resolved ) Depressive disorder3 01/23/14 Active Obesity(Confirmed) Active 1Data migrated from [employer] on 04/21/15. 2Data migrated from [employer] on 03/16/15. 3Data migrated from [employer] on 03/16/15. Allergies, Adverse Reactions, Alerts Substance Reaction Severity Status NKDA Active Medications Atarax 25 mg oral tab 25 mg=1 tab, PO, TID, X 14 day, # 42 tab, 0 Refill(s), Pharmacy: [facility]/pharmacy #[id number] Start Date: 09/11/17 Stop Date: 09/25/17 Status: Ordered Results No data available for [...]
--- OUTSIDE RECORDS SUMMARY | 2019-03-08 20:15 | XMS REPORT | Summary of Care ---
Author Author [facility] Primary [facility] Organization [facility] Address Unknown Phone Unavailable Encounter HQ John_teri(FIN) [id number] Date(s): 12/21/17 - 12/21/17 [facility] [address] [place], [place] [address] [phone] Discharge Disposition: Home or Self Care Attending Physician: Shahla Castellano SENIOR IT AUDITOR Vital Signs Most recent to 1 oldest [...] 01/23/14 Active Obesity(Confirmed) Active 1Data migrated from [employer] on 03/16/15. 2Data migrated from [employer] on 03/16/15. Allergies, Adverse Reactions, Alerts Substance Reaction Severity Status NKDA Active Medications promethazine 25 mg oral tablet 25 mg=1 tab, PO, Q6H, PRN Nausea/Vomiting, # 12 tab, 0 Refill(s), Pharmacy: [id number] Start Date: 12/21/17 Stop Date: 12/31/17 Status: Discontinued Results No data available for [...]
--- OUTSIDE RECORDS SUMMARY | 2019-03-08 20:15 | XMS REPORT | Summary of Care ---
Author Author [facility] Address Unknown Phone Unavailable Encounter HQ Mimintr_teri(FIN) [id number] Date(s): 09/20/16 - 10/19/16 [facility] Discharge Disposition: Home or Self Care Attending Physician: Dinesh Lopez MD Vital Signs No data available for [...] No data available for this section Procedures No data available for this section Social History Social History Type Response Substance Abuse Use: None. Employment/School Status: Student. Work/School description: 10th grade. Alcohol Never Smoking Status Never smoker; Lives with someone who smokes; Cigarette Smoking Last 365 Days Unable to obtain; Reg Smoking Cessation Counseling No1 1parents smoke Assessment and Plan No data available for this section
--- OUTSIDE RECORDS SUMMARY | 2019-03-08 20:15 | XMS REPORT | Summary of Care ---
Author Author [facility] Primary [facility] Organization [facility] Address Unknown Phone Unavailable Encounter SHAUN Park(FIN) [id number] Date(s): 10/01/17 - 10/01/17 [facility] [address] [place] [address] [phone] Discharge Disposition: Home or Self Care Attending Physician: Shahla Castellano NEGOTIATOR SALES Vital Signs Most recent to 1 oldest [Reference Range]: Height 160.02 cm (10/01/17 9:26 AM) Temperature Oral 97.9 DegF [96.4-99.1 DegF] (10/01/17 9:26 AM) Blood Pressure 111/77 mmHg [90-140/60-90 mmHg] (10/01/17 9:26 AM) Respiratory Rate 16 BRMIN [14-20 BRMIN] (10/01/17 9:26 AM) Peripheral Pulse 93 bpm Rate [60-100 bpm] (10/01/17 9:26 AM) Weight 115.909 kg (10/01/17 9:26 AM) Body Mass Index 45.27 m2 (10/01/17 9:26 AM) Problem List Condition Effective Dates Status Health Status Informant ADHD (attention Active deficit hyperactivity disorder), combined type(Confirmed) Contraception care 01/23/14 Active management1 Depression(Confirmed Resolved ) Depressive disorder2 01/23/14 Active Obesity(Confirmed) Active 1Data migrated from [employer] on 03/16/15. 2Data migrated from [employer] on 03/16/15. Allergies, Adverse Reactions, Alerts Substance Reaction Severity Status NKDA Active Medications Zithromax 250 mg oral tablet 1,000 mg=4 tab, PO, ONCE, # 4 tab, 0 Refill(s), Pharmacy: [facility]/pharmacy #[id number] Start Date: 10/02/17 Status: Ordered Zithromax 500 mg oral tablet 2,000 mg=4 tab, PO, ONCE, # 4 tab, 0 Refill(s), Pharmacy: [facility]/pharmacy #[id number] Start Date: 10/02/17 Status: Ordered Results No data available for [...]
--- OUTSIDE RECORDS SUMMARY | 2019-03-08 20:15 | XMS REPORT | Summary of Care ---
Author Author [facility] Primary Care [facility] Organization [facility] Primary [facility] Address Unknown Phone Unavailable Encounter HQ Vivian(FIN) [id number] Date(s): 07/16/18 - 07/16/18 [facility] [address] [place] [address]- Discharge Disposition: Home or Self Care Attending Physician: Shahla Castellano NP Vital Signs Most recent to 1 oldest [Reference Range]: Height 160.02 cm (07/16/18 2:08 PM) Temperature Oral 98.4 DegF [96.4-99.1 DegF] (07/16/18 2:08 PM) Blood Pressure 123/83 mmHg [90-140/60-90 mmHg] (07/16/18 2:08 PM) Peripheral Pulse 99 bpm Rate [60-100 bpm] (07/16/18 2:08 PM) Weight 113.636 kg (07/16/18 2:08 PM) Body Mass Index 44.38 m2 (07/16/18 2:08 PM) Problem List Condition Effective Dates Status Health Status Informant ADHD (attention Active deficit hyperactivity disorder), combined type(Confirmed) Contraception care 01/23/14 Active management1 Depression(Confirmed Resolved ) Depressive disorder2 01/23/14 Active Major depressive Active disorder, recurrent episode(Confirmed) Obesity(Confirmed) Active 1Data migrated from [employer] on 03/16/15. 2Data migrated from [employer] on 03/16/15. Allergies, Adverse Reactions, Alerts Substance Reaction Severity Status NKDA Active Medications Zofran 8 mg oral tablet 8 mg=1 tab, PO, TID, # 10 tab, 0 Refill(s), Pharmacy: [id number] Start Date: 07/16/18 Stop Date: 07/20/18 Status: Ordered Results No data available for [...]
--- OUTSIDE RECORDS SUMMARY | 2019-03-08 20:15 | XMS REPORT | Summary of Care ---
Author Organization Unknown Address Unknown Phone Unavailable Encounter SHAUN Park(HEAVEN) [id number] Date(s): 01/29/15 - 01/29/15 [facility] [address] [place] [address]- Discharge Diagnosis: Palpitations Discharge Diagnosis: Chest pain, atypical Discharge Disposition: Home Physician Attending: Jamison Lorenzana MD Vital Signs 1 2 3 Most recent to oldest [Reference Range]: 98.1 DegF (01/29/15 11:30 PM) 98.2 DegF (01/29/15 9:50 PM) 98.0 DegF (01/29/15 8:12 PM) Temperature Oral [96.8-99.7 DegF] 143/81 mmHg *HI* (01/29/15 11:30 PM) 129/79 mmHg (01/29/15 9:50 PM) 147/89 mmHg *HI* (01/29/15 8:12 PM) Blood Pressure [90-138/45-84 mmHg] 14 BRMIN (01/29/15 11:30 PM) 14 BRMIN (01/29/15 9:50 PM) 20 BRMIN (01/29/15 8:12 PM) Respiratory Rate [14-20 BRMIN] 93 bpm *HI* (01/29/15 11:30 PM) 86 bpm (01/29/15 9:50 PM) 107 bpm *HI* (01/29/15 8:12 PM) Peripheral Pulse Rate [55-90 bpm] 86.534 kg (01/29/15 8:12 PM) Weight Problem List Condition Effective Dates Status Health Status Informant ADHD (attention Resolved deficit hyperactivity disorder)(Confirmed) Depression(Confirmed Resolved ) Allergies, Adverse Reactions, Alerts Substance Reaction Severity Status NKDA Active Medications Saline Flush 0.9% 10 mL, Route: IVP, Drug Form: INJ, Dosing Weight 86.534, kg, PRN, PRN Line Flush , Start date: 01/29/15 22:21:00, Duration: 30 day, Stop date: 02/28/15 22:20:00 Notes: preservative free. Start Date: 01/29/15 Stop Date: 01/30/15 Status: Discontinued Results ELECTROLYTES Most recent to 1 oldest [Reference Range]: Sodium Lvl [135-145 139 mEq/L mEq/L] (01/29/15 10:45 PM) Potassium Lvl 3.7 mEq/L [3.5-5.1 mEq/L] (01/29/15 10:45 PM) Chloride Lvl [95-109 106 mEq/L mEq/L] (01/29/15 10:45 PM) CO2 [24-32 mEq/L] 26 mEq/L (01/29/15 10:45 PM) AGAP [10.0-20.0 10.7 mEq/L mEq/L] (01/29/15 10:45 PM) CHEM PANEL Most recent to 1 oldest [Reference Range]: Creatinine Lvl 0.6 mg/dL [0.5-1.4 mg/dL] (01/29/15 10:45 PM) eGFR See Comment 1 *NA* (01/29/15 10:45 PM) BUN [7-22 mg/dL] 10 mg/dL (01/29/15 10:45 PM) Glucose Lvl [70-99 90 mg/dL 2 mg/dL] (01/29/15 10:45 PM) Calcium Lvl 9.3 mg/dL [8.5-10.5 mg/dL] (01/29/15 10:45 PM) 1Result Comment: No height is recorded for this patient; estimated GFR cannot be calculated. 2Interpretive Data: Adult reference range values reflect the clinical guidelines of the [employer]. HEMATOLOGY Most recent to 1 oldest [Reference Range]: WBC [3.7-10.4 K/CMM] 8.4 K/CMM (01/29/15 10:45 PM) RBC [4.20-5.40 3.91 M/CMM M/CMM] *LOW* (01/29/15 10:45 PM) Hgb [12.0-16.0 g/dL] 12.7 g/dL (01/29/15 10:45 PM) Hct [36.0-48.0 %] 36.7 % (01/29/15 10:45 PM) MCV [80.0-98.0 fL] 93.8 fL (01/29/15 10:45 PM) MCH [27.0-31.0 pg] 32.4 pg *HI* (01/29/15 10:45 PM) MCHC [32.0-36.0 34.5 g/dL g/dL] (01/29/15 10:45 PM) RDW [11.5-14.5 %] 12.4 % (01/29/15 10:45 PM) Platelet [133-450 213 K/CMM K/CMM] (01/29/15 10:45 PM) MPV [7.4-10.4 fL] 9.3 fL (01/29/15 10:45 PM) Segs [34.0-64.0 %] 58.3 % (01/29/15 10:45 PM) Lymphocytes 30.5 % [20.0-40.0 %] (01/29/15 10:45 PM) Monocytes [2.0-12.0 9.5 % %] (01/29/15 10:45 PM) Eosinophils [0.0-4.0 1.4 % %] (01/29/15 10:45 PM) Basophils [0.0-1.0 0.3 % %] (01/29/15 10:45 PM) Segs-Bands # 4.9 K/CMM [1.5-8.1 K/CMM] (01/29/15 10:45 PM) Lymphocytes # 2.6 K/CMM [1.0-5.5 K/CMM] (01/29/15 10:45 PM) Monocytes # [0.0-0.8 0.8 K/CMM K/CMM] (01/29/15 10:45 PM) Eosinophils # 0.1 K/CMM [0.0-0.5 K/CMM] (01/29/15 10:45 PM) D-Dimer 0.22 ug/mL FEU 3 *NA* (01/29/15 10:45 PM) 3Interpretive Data: In DIC, quantitative D-Dimer is generally greater than 0.66 ug/mL FEU. Values of quantitative D-Dimer less than 0.40 ug/mL FEU have been reported to be associated with a low probability of deep vein thrombosis/pulmonary embolism. This test alone should not be used to rule out DVT/PE. Immunizations No data available for this section Procedures No data available for this section Social History Social History Type Response Smoking Status Never smoker; Lives with someone who smokes; Cigarette Smoking Last 365 Days Unable to obtain; Reg Smoking Cessation Counseling No1 1parents smoke Assessment and Plan No data available for this section
[2019-03-08] MEDS ORDERED: SODIUM CHLORIDE 0.9% 1000ML 1,000 ML IV STA (20:34)
[2019-03-08 21:43] LABS: BASOPHILS % 0.2 % (0.0-1.0); EOSINOPHILS # (AUTO) 0.2 (0.0-0.4); EOSINOPHILS % 1.7 % (0.0-6.0); HEMATOCRIT 39.2 % (34.2-44.1); HEMOGLOBIN 13.2 g/dL (12.0-16.0); LYMPHOCYTES # (AUTO) 3.9 (1.0-3.2); LYMPHOCYTES % 37.7 % (18.0-39.1); MEAN CORPUSCULAR HEMOGLOBIN 31.4 pg (28-32); MEAN CORPUSCULAR HGB CONC 33.7 g/dL (31-35); MEAN CORPUSCULAR VOLUME 93.3 fL (81-99); MONOCYTES # (AUTO) 0.8 (0.2-0.8); MONOCYTES % 8.1 % (4.4-11.3); NEUTROPHILS # (AUTO) 5.3 (2.1-6.9); NEUTROPHILS % 51.9 % (38.7-80.0); PLATELET COUNT 282 x10e3/uL (140-360); RED CELL DISTRIBUTION WIDTH 11.8 % (11.7-14.4)
[2019-03-08 21:51] LABS: BILIRUBIN,URINE NEGATIVE (NEGATIVE); CLARITY,URINE SL CLOUDY (CLEAR); COLOR,URINE YELLOW (YELLOW); KETONES,URINE NEGATIVE (NEGATIVE); LEUKOCYTE ESTERASE ,URINE NEGATIVE (NEGATIVE); NITRITE,URINE NEGATIVE (NEGATIVE); PROTEIN,URINE DIPSTICK NEGATIVE (NEGATIVE); URINE UROBILINOGEN 0.2 mg/dL (0.2 - 1)
[2019-03-08 22:04] LABS: ALANINE AMINOTRANSFERASE 44 IU/L (0-55); ALBUMIN 4.2 g/dL (3.5-5.0); ALBUMIN/GLOBULIN RATIO 1.3 (0.8-2.0); ALKALINE PHOSPHATASE 73 IU/L (40-150); AMYLASE 31 U/L (25-125); ANION GAP 12.4 mmol/L (8-16); BLOOD UREA NITROGEN 10 mg/dL (7-26); BUN/CREATININE RATIO 13 (6-25); CALCIUM 9.9 mg/dL (8.4-10.2); CARBON DIOXIDE 26 mmol/L (22-29); CHLORIDE 105 mmol/L (98-107); CREATININE, SERUM 0.75 mg/dL (0.57-1.11); EST GLOMERULAR FILTRATION RATE > 60 ML/MIN (60-); GLUCOSE 95 mg/dL (74-118); LIPASE 25 U/L (8-78); POTASSIUM 3.4 mmol/L (3.5-5.1); SODIUM 140 mmol/L (136-145)
[2019-03-08 22:10] LABS: HCG,QUANTITATIVE < 1.20 mIU/mL (0-10)
[2019-03-08 22:18] LABS: AMORPHOUS SEDIMENT,URINE MODERATE (FEW); EPITHELIAL CELLS,URINE MODERATE /LPF; WBC,URINE (MAN) 0-5 /HPF (0-5)
[2019-03-08 23:00] VITALS: BP 118/72
== END 2019-03-08 23:10 | disposition home or self-care (01) ==
LOC: ER 20:10
DX: R10.30 Lower abdominal pain, unspecified (principal); R11.2 Nausea with vomiting, unspecified
CPT/HCPCS: 36415; 80053; 81001; 82150; 83690; 84702; 85025; 99284; J7030